=== PATIENT | female | born 1990 ===

== ENCOUNTER 2023-10-17 12:47 | Emergency (ER) | payer OTHER ==
--- NOTE | 2023-10-17 13:02 | ED ---
Upper Extremity HPI - General Chief Complaint: Extremity Injury, Upper Stated Complaint: right hand injury Time Seen by Provider: 10/17/23 13:00 Source: patient, RN notes reviewed Mode of arrival: ambulatory Limitations: no limitations - History of Present Illness Initial Comments: 32-year-old female presents to with chief complaint of right hand pain. States that she was at home putting away dishes when a metal cabinet door fell off the hedges and hit her in the right hand. Patient denies any numbness or tingling to the extremity, as well as limited range of motion yet it is painful. Patient states she has not taken anything for the pain. No other acute complaints at this time. - Related Data Allergies Allergy/AdvReac Type Severity Reaction Status Date / Time aspirin Allergy Rash/Hives Verified 10/17/23 12:55 ibuprofen [From Motrin] Allergy Rash/Hives Verified 10/17/23 12:55 amoxicillin AdvReac Unknown Verified 10/17/23 12:55 Review of Systems ROS Statement: Those systems with pertinent positive or pertinent negative responses have been documented in the HPI. ROS Other: All systems not noted in ROS Statement are negative. Past Medical History Past Medical History: Asthma History of Any Multi-Drug Resistant Organisms: None Reported Past Surgical History: Section Past Psychological History: No Psychological Hx Reported Smoking Status: Current some day smoker Past Alcohol Use History: None Reported Past Drug Use History: Cocaine General Exam Limitations: no limitations General appearance: alert, in no apparent distress Head exam: Present: atraumatic, normocephalic, normal inspection Eye exam: Present: normal appearance, PERRL, EOMI. Absent: scleral icterus, conjunctival injection, periorbital swelling ENT exam: Present: normal exam, mucous membranes moist Neck exam: Present: normal inspection. Absent: tenderness, meningismus, lymp hadenopathy Respiratory exam: Present: normal lung sounds bilaterally. Absent: respiratory distress, wheezes, rales, rhonchi, stridor Cardiovascular Exam: Present: regular rate, normal rhythm, normal heart sounds. Absent: systolic murmur, diastolic murmur, rubs, gallop, clicks GI/Abdominal exam: Present: soft, normal bowel sounds. Absent: distended, tenderness, guarding, rebound, rigid Extremities exam: Present: normal inspection, full ROM, normal capillary refill. Absent: tenderness, pedal edema, joint swelling, calf tenderness Right Hand Wrist exam: Present: tenderness (medial wrist tenderness to palpation ). Absent: full ROM (limited active flexion, extension, rotation), swelling, laceration, ecchymosis Vascular: Present: radial pulse (2+). Absent: vascular compromise Back exam: Present: normal inspection Neurological exam: Present: alert, oriented X3, CN II-XII intact Psychiatric exam: Present: normal affect, normal mood Skin exam: Present: warm, dry, intact, normal color. Absent: rash Course Vital Signs 10/17/23 10/17/23 12:49 13:47 Temperature 98 F 98.1 F Pulse Rate 95 72 Respiratory 18 18 Rate Blood Pressure 123/76 132/78 O2 Sat by Pulse 98 98 Oximetry Medical Decision Making - Medical Decision Making Was pt. sent in by a medical professional or institution (, PA, MARKETING SUMMER INTERN, urgent care, hospital, or halfway...) When possible be specific @ -No Did you speak to anyone other than the patient for history (EMS, parent, family, police, friend...)? What history was obtained from this source @ -No Did you review nursing and triage notes (agree or disagree)? Why? @ -I reviewed and agree with nursing and triage notes Were old charts reviewed (outside hosp., previous admission, EMS record, old EKG, old radiological studies, urgent care reports/EKG's, halfway records)? Report findings @ -No old charts were reviewed Differential Diagnosis (chest pain, altered mental status, abdominal pain women, abdominal pain men, vaginal bleeding, weakness, fever, dyspnea, syncope, headache, dizziness, GI bleed, back pain, seizure, CVA, palpatations, mental health, musculoskeletal)? @Differential Musculoskeletal Muscular strain, contusion, ligament sprain, fracture, arthritis, septic arth ritis, bursitis, cellulitis, muscle spasm, nerve compression, DVT, arterial occlusion, herpes zoster, electrolyte abnormality, tumor.... This is not meant to be in all inclusive list EKG interpreted by me (3pts min.). @ -None X-rays interpreted by me (1pt min.). @ -None done CT interpreted by me (1pt min.). @ -None done U/S interpreted by me (1pt. min.). @ -None done What testing was considered but not performed or refused? (CT, X-rays, U/S, labs)? Why? @ -None What meds were considered but not given or refused? Why? @ -None Did you discuss the management of the patient with other professionals (professionals i.e. , PA, MARKETING SUMMER INTERN, lab, RT, psych nurse, social work nurse, steel fabricator, teacher, school services officer, family service caseworker)? Give summary @ -No Was smoking cessation discussed for >3mins.? @ -No Was critical care preformed (if so, how long)? @ -No Were there social determinants of health that impacted care today? How? (Homelessness, low income, unemployed, alcoholism, drug addiction, transportation, low edu. Level, literacy, decrease access to med. care, fpc, rehab)? @ -No Was there de-escalation of care discussed even if they declined (Discuss DNR or withdrawal of care, Hospice)? DNR status @ -No What co-morbidities impacted this encounter? (DM, HTN, Smoking, COPD, CAD, Cancer, CVA, ARF, Chemo, Hep., AIDS, mental health diagnosis, sleep apnea, morbid obesity)? @ -None Was patient admitted / discharged? Hospital course, mention meds given and route, prescriptions, significant lab abnormalities, going to OR and other pertinent info. @ -Discharged. 32-year-old female chief complaint of right hand and wrist pain. On physical exam patient was still found to have 2+ children's nursery assistant strength and 2+ radial pulse intact. No discrepancies in neurological deficits. X-ray with no acute fracture or dislocation.There is no acute fracture or dislocation noted of the patient's right hand. Symptomatic treatment at home, use ice and cycle Tylenol Motrin at home for symptomatic relief. Discussed with Dr. Guan Undiagnosed new problem with uncertain prognosis? @ -No Drug Therapy requiring intensive monitoring for toxicity (Heparin, Nitro, Insulin, Cardizem)? @ -No Were any procedures done? @ -No Diagnosis/symptom? @ -hand contusion, hand sprain Acute, or Chronic, or Acute on Chronic? @ -acute Uncomplicated (without systemic symptoms) or Complicated (systemic symptoms)? @ -uncomplicated Side effects of treatment? @ -No Exacerbation, Progression, or Severe Exacerbation? @ -No Poses a threat to life or bodily function? How? (Chest pain, USA, MS, pneumonia, PE, COPD, DKA, ARF, appy, cholecystitis, CVA, Diverticulitis, Homicidal, Suicidal, threat to staff... and all critical care pts) @ -No Disposition Clinical Impression: Contusion of hand Narrative: Please return to the Emergency Department if symptoms worsen or any other concerns. Disposition: HOME SELF-CARE Condition: Good Instructions (If sedation given, give patient instructions): Hand Sprain (ED) Is patient prescribed a controlled substance at d/c from ED?: No Referrals: Nonstaff,Physician [Primary Care Provider] - 1-2 days Time of Disposition: 13:35
[2023-10-17] MEDS: ACETAMINOPHEN TAB 500 MG TAB PO STA (13:16)
[2023-10-17 13:24] VITALS: RESP 18
--- NOTE | 2023-10-17 13:24 | XR ---
EXAMINATION TYPE: XR hand complete RT DATE OF EXAM: 10/17/2023 CLINICAL HISTORY: pain TECHNIQUE: Frontal, lateral and oblique images of the right hand are obtained. COMPARISON: None. FINDINGS: There is no acute fracture/dislocation evident. The joint spaces appear within normal limi ts. The overlying soft tissue appears unremarkable. IMPRESSION: There is no acute fracture or dislocation ICD 10 NO FRACTURE, INITIAL EVALUATION
[2023-10-17 14:01] VITALS: BP 132/78; PULSE 72; TEMP 98.1
== END 2023-10-17 13:47 | disposition home or self-care (01) ==
LOC: EC 12:47
DX: S60.221A Contusion of right hand, initial encounter (principal); F17.200 Nicotine dependence, unspecified, uncomplicated; Z88.0 Allergy status to penicillin; Z88.6 Allergy status to analgesic agent; Z88.8 Allergy status to other drugs, medicaments and biological substances; W22.03XA Walked into furniture, initial encounter
CPT/HCPCS: 99283

== ENCOUNTER 2023-10-22 10:49 | Emergency (ER) | payer OTHER ==
[2023-10-22 11:34] VITALS: RESP 18; TEMP 97.7
--- NOTE | 2023-10-22 11:43 | ED ---
Abdominal Pain HPI - General Chief Complaint: Abdominal Pain Stated Complaint: Abd pain Time Seen by Provider: 10/22/23 11:21 Source: patient, RN notes reviewed Mode of arrival: ambulatory Limitations: no limitations - History of Present Illness Initial Comments: This is a 33-year-old female who presents to the emergency department for abdominal pain. Patient is currently at [facility] for cocaine use. Reports left lower quadrant pain with radiation into the back for the last 2 days. She has associated nausea. Denies any history of kidney stones or similar symptoms in the past. MD Complaint: abdominal pain, flank pain - Related Data Home Medications Medication Instructions Recorded Confirmed Acetaminophen Tab [Tylenol] 650 mg PO Q4H PRN 10/22/23 10/22/23 Albuterol Nebulized [Ventolin 2.5 mg INHALATION RT-Q4H PRN 10/22/23 10/22/23 Nebulized] Benzocaine 20 % Gel [Orajel] 1 applic MM DIRECTED PRN 10/22/23 10/22/23 Cariprazine HCl [Vraylar] 1.5 mg PO DAILY 10/22/23 10/22/23 Cholecalciferol [Vitamin D3 (25 25 mcg PO DAILY 10/22/23 10/22/23 Mcg = 1000 Iu)] Docusate [Colace] 100 mg PO BID PRN 10/22/23 10/22/23 Melatonin 10 mg PO HS 10/22/23 10/22/23 Multivitamins, Thera [Multivitamin 1 tab PO DAILY 10/22/23 10/22/23 (formulary)] Mylanta 30 ml PO Q4H PRN 10/22/23 10/22/23 Nicotine 21Mg/24Hr Patch [Habitrol] 1 patch TRANSDERM DAILY 10/22/23 10/22/23 clindamycin HCL [Cleocin] 450 mg PO Q8H 10/22/23 10/22/23 traZODone HCL [Desyrel] 50 - 150 mg PO HS PRN 10/22/23 10/22/23 Allergies Allergy/AdvReac Type Severity Reaction Status Date / Time amoxicillin Allergy Rash/Hives/ Verified 10/22/23 14:45 Wheezing/Fe dino aspirin Allergy Rash/Hives/ Verified 10/22/23 14:45 Wheezing/Fe dino ibuprofen [From Motrin] Allergy Rash/Hives/ Verified 10/22/23 14:45 Wheezing/Fe dino Review of Systems ROS Statement: Those systems with pertinent positive or pertinent negative responses have been documented in the HPI. ROS Other: All systems not noted in ROS Statement are negative. Past Medical History Past Medical History: Asthma History of Any Multi-Drug Resistant Organisms: None Reported Past Surgical History: Section Past Psychological History: No Psychological Hx Reported Smoking Status: Current some day smoker Past Alcohol Use History: None Reported Past Drug Use History: Cocaine General Exam Limitations: no limitations General appearance: alert, in distress Head exam: Present: atraumatic, normocephalic, normal inspection Respiratory exam: Present: normal lung sounds bilaterally. Absent: respiratory distress, wheezes, rales, rhonchi, stridor Cardiovascular Exam: Present: regular rate, normal rhythm, normal heart sounds. Absent: systolic murmur, diastolic murmur, rubs, gallop, clicks GI/Abdominal exam: Present: soft, tenderness (LLQ), normal bowel sounds. Absent: distended Back exam: Present: CVA tenderness (L). Absent: CVA tenderness (R) Neurological exam: Present: alert, oriented X3, CN II-XII intact Psychiatric exam: Present: normal affect, normal mood Skin exam: Present: warm, dry, intact, normal color. Absent: rash Course Vital Signs 10/22/23 10/22/23 10/22/23 11:16 13:29 15:08 Temperature 97.7 F Pulse Rate 107 H 84 Respiratory 18 18 18 Rate Blood Pressure 138/94 111/80 O2 Sat by Pulse 99 96 Oximetry Medical Decision Making - Medical Decision Making This is a 33 year old female who presents to the emergency department for abdominal pain. Was pt. sent in by a medical professional or institution? @ -[facility] Did you speak to anyone other than the patient for history? @ -No Did you review nursing and triage notes? @ -Yes, and I agree, it is accurate with regards to the patient's symptoms. Were old charts reviewed? @ -No Differential Diagnosis? @ -Differential Abdominal Pain Women: Appendicitis, Cholecystitis, diverticulosis, ischemic bowel, pancreatitis, hepatitis, UTI, gastroenteritis, AAA, incarcerated hernia, bowel obstruction, constipation, inflammatory bowel, hepatitis, peptic ulcer disease, splenic infarction, perforated viscus, vulvitis, ovarian torsion, PID, kidney stone, placenta abruption, this is not meant to be an all-inclusive list EKG interpreted by me (3pts min.)? @ -Not obtained X-rays interpreted by me (1pt min.)? @ -Not obtained CT interpreted by me (1pt min.)? @ -CT scan of the abdomen and pelvis obtained. My interpretation identifies no evidence of bowel wall thickening or free air. U/S interpreted by me (1pt. min.)? @ -Transvaginal ultrasound obtained. My interpretation identifies no evidence of an ovarian torsion. What testing was considered but not performed? (CT, X-rays, U/S, labs)? Why? @ -None What meds were considered but not given? Why? @ -None Did you discuss the management of the patient with other professionals? @ -No Did you reconcile home meds? @ -No Was smoking cessation discussed for >3mins.? @ -No Was critical care preformed (if so, how long)? @ -No Were there social determinants of health that impacted care today? How? (Homelessness, low income, unemployed, alcoholism, drug addiction, transpo rtation, low edu. Level, literacy, decrease access to med. care, long term, rehab)? @ -Drug addiction, increasing her risk for other health problems. Was there de-escalation of care discussed even if they declined? (Discuss DNR or withdrawal of care, Hospice)? @ -No What co-morbidities impacted this encounter? (DM, HTN, Smoking, COPD, CAD, Cancer, CVA, Hep., AIDS, mental health diagnosis, sleep apnea, morbid obesity)? @ -Drug addiction Was patient admitted / discharged? @ -Discharged. Lab work unremarkable. Urinalysis negative for signs of infection. CT scan of the abdomen and pelvis obtained demonstrating no evidence of a ureteral calculus or other acute process to account for the patient's pain. Transvaginal ultrasound obtained as well revealing no acute process. She was noted to have leiomyomatous changes of the uterus and bilateral ovarian follicles. There was no evidence of ovarian torsion. Discussed with the patient that the cause of her symptoms is not entirely clear. Her pain was wel l-controlled in the emergency department and she was ambulating around and eating food without any difficulty. Patient discharged back to [facility] in stable condition. Advised Tylenol as needed for pain relief. Undiagnosed new problem with uncertain prognosis? @ -None Drug Therapy requiring intensive monitoring for toxicity (Heparin, Nitro, Insulin, Cardizem)? @ -None Were any procedures done? @ -None Diagnosis/symptom? @ -Abdominal pain Acute, or Chronic, or Acute on Chronic? @ -Acute Uncomplicated (without systemic symptoms) or Complicated (systemic symptoms)? @ -Uncomplicated Side effects of treatment? @ -None Exacerbation, Progression, or Severe Exacerbation] @ -Not applicable Poses a threat to life or bodily function? @ -No Return precautions reviewed in depth, the patient is instructed to return to the emergency department with any new, worsening, or concerning symptoms. Patient verbalized understanding. This case was discussed in detail with the attending ED physician, Dr. Velez Presentation, findings, and treatment plan discussed in detail as well. - Lab Data Result diagrams: 10/22/23 11:49 10/22/23 11:49 Lab Results 10/22/23 10/22/23 10/22/23 Range/Units 11:49 11:49 11:49 WBC 6.2 (3.8-10.6) k/uL RBC 4.46 (3.80-5.40) m/uL Hgb 12.3 (11.4-16.0) gm/dL Hct 39.2 (34.0-46.0) % MCV 88.0 (80.0-100.0) fL MCH 27.6 (25.0-35.0) pg MCHC 31.3 (31.0-37.0) g/dL RDW 13.9 (11.5-15.5) % Plt Count 353 (150-450) k/uL MPV 7.5 Neutrophils % 55 % Lymphocytes % 32 % Monocytes % 7 % Eosinophils % 3 % Basophils % 0 % Neutrophils # 3.4 (1.3-7.7) k/uL Lymphocytes # 1.9 (1.0-4.8) k/uL Monocytes # 0.4 (0-1.0) k/uL Eosinophils # 0.2 (0-0.7) k/uL Basophils # 0.0 (0-0.2) k/uL Sodium (137-145) mmol/L Potassium (3.5-5.1) mmol/L Chloride (98-107) mmol/L Carbon Dioxide (22-30) mmol/L Anion Gap mmol/L BUN (7-17) mg/dL Creatinine (0.52-1.04) mg/dL Est GFR (CKD-EPI)AfAm (>60 ml/min/1.73 sqM) Est GFR (CKD-EPI)NonAf (>60 ml/min/1.73 sqM) Glucose (74-99) mg/dL Plasma Lactic Acid Reagan (0.7-2.0) mmol/L Calcium (8.4-10.2) mg/dL Total Bilirubin (0.2-1.3) mg/dL AST (14-36) U/L ALT (4-34) U/L Alkaline Phosphatase (38-126) U/L Total Protein (6.3-8.2) g/dL Albumin (3.5-5.0) g/dL Amylase (30-110) U/L Lipase (23-300) U/L Urine Color Colorless Urine Appearance Clear (Clear) Urine pH 7.0 (5.0-8.0) Ur Specific [place] 1.009 (1.001-1.035) Urine Protein Negative (Negative) Urine Glucose (UA) Negative (Negative) Urine Ketones Negative (Negative) Urine Blood Negative (Negative) Urine Nitrite Negative (Negative) Urine Bilirubin Negative (Negative) Urine Urobilinogen <2.0 (<2.0) mg/dL Ur Leukocyte Esterase Negative (Negative) Urine HCG, Qual Not Detected (Not Detectd) 10/22/23 10/22/23 Range/Units 11:49 11:49 WBC (3.8-10.6) k/uL RBC (3.80-5.40) m/uL Hgb (11.4-16.0) gm/dL Hct (34.0-46.0) % MCV (80.0-100.0) fL MCH (25.0-35.0) pg MCHC (31.0-37.0) g/dL RDW (11.5-15.5) % Plt Count (150-450) k/uL MPV Neutrophils % % Lymphocytes % % Monocytes % % Eosinophils % % Basophils % % Neutrophils # (1.3-7.7) k/uL Lymphocytes # (1.0-4.8) k/uL Monocytes # (0-1.0) k/uL Eosinophils # (0-0.7) k/uL Basophils # (0-0.2) k/uL Sodium 136 L (137-145) mmol/L Potassium 4.4 (3.5-5.1) mmol/L Chloride 106 (98-107) mmol/L Carbon Dioxide 24 (22-30) mmol/L Anion Gap 6 mmol/L BUN 19 H (7-17) mg/dL Creatinine 0.54 (0.52-1.04) mg/dL Est GFR (CKD-EPI)AfAm >90 (>60 ml/min/1.73 sqM) Est GFR (CKD-EPI)NonAf >90 (>60 ml/min/1.73 sqM) Glucose 90 (74-99) mg/dL Plasma Lactic Acid Reagan 0.7 (0.7-2.0) mmol/L Calcium 9.2 (8.4-10.2) mg/dL Total Bilirubin 0.3 (0.2-1.3) mg/dL AST 24 (14-36) U/L ALT 22 (4-34) U/L Alkaline Phosphatase 70 (38-126) U/L Total Protein 7.0 (6.3-8.2) g/dL Albumin 4.0 (3.5-5.0) g/dL Amylase 68 (30-110) U/L Lipase 61 (23-300) U/L Urine Color Urine Appearance (Clear) Urine pH (5.0-8.0) Ur Specific [place] (1.001-1.035) Urine Protein (Negative) Urine Glucose (UA) (Negative) Urine Ketones (Negative) Urine Blood (Negative) Urine Nitrite (Negative) Urine Bilirubin (Negative) Urine Urobilinogen (<2.0) mg/dL Ur Leukocyte Esterase (Negative) Urine HCG, Qual (Not Detectd) - Radiology Data Radiology results: report reviewed, image reviewed Disposition Clinical Impression: Abdominal pain Disposition: HOME SELF-CARE Instructions (If sedation given, give patient instructions): Abdominal Pain (ED) Additional Instructions: Return to the emergency department with any new, worsening, or concerning symptoms. Take Tylenol as needed for pain relief. Follow up with your primary care provider in 1-2 days. Is patient prescribed a controlled substance at d/c from ED?: No Referrals: Nonstaff,Physician [Primary Care Provider] - 1-2 days Time of Disposition: 14:34
[2023-10-22] MEDS: MORPHINE SULFATE 4 MG/ML SYRINGE IVP STA ×2 (11:56→13:22)
[2023-10-22] MEDS: SODIUM CHLORIDE 0.9% 1,000 ML IV STA (11:56)
[2023-10-22] MEDS: ONDANSETRON 4 MG/2 ML VIAL IVP STA (11:56)
[2023-10-22 12:03] LABS: Appearance,Urine Clear (Clear); Bilirubin,Urine Negative (Negative); Blood,Urine Negative (Negative); Color,Urine Colorless; Glucose,Urine (UA) Negative (Negative); Ketones,Urine Negative (Negative); Leukocyte Esterase,Urine Negative (Negative); Nitrite,Urine Negative (Negative); Protein,Urine Negative (Negative); Specific Gravity,Urine 1.009 (1.001-1.035); Urobilinogen,Urine <2.0 mg/dL (<2.0)
[2023-10-22 12:11] LABS: ALT 22 U/L (4-34); AST 24 U/L (14-36); African American GFR (CKD) >90 (>60 ml/min/1.73 sqM); Alkaline Phosphatase 70 U/L (38-126); Amylase 68 U/L (30-110); Anion Gap 6 mmol/L; Blood Urea Nitrogen 19 mg/dL (7-17); Calcium 9.2 mg/dL (8.4-10.2); Carbon Dioxide 24 mmol/L (22-30); Chloride 106 mmol/L (98-107); Glucose 90 mg/dL (74-99); Lipase 61 U/L (23-300); Non-African American GFR(CKD) >90 (>60 ml/min/1.73 sqM); Potassium 4.4 mmol/L (3.5-5.1); Sodium 136 mmol/L (137-145); Total Bilirubin 0.3 mg/dL (0.2-1.3)
[2023-10-22 12:29] LABS: Basophils % (A) 0 %; Eosinophils # (A) 0.2 k/uL (0-0.7); Eosinophils % (A) 3 %; HCT 39.2 % (34.0-46.0); HGB 12.3 gm/dL (11.4-16.0); Lymphocytes # (A) 1.9 k/uL (1.0-4.8); Lymphocytes % (A) 32 %; MCH 27.6 pg (25.0-35.0); MCHC 31.3 g/dL (31.0-37.0); Mean Platelet Volume 7.5; Monocytes # (A) 0.4 k/uL (0-1.0); Monocytes % (A) 7 %; Neutrophils # (A) 3.4 k/uL (1.3-7.7); Neutrophils % (A) 55 %; Platelet Count 353 k/uL (150-450); RBC 4.46 m/uL (3.80-5.40); RDW 13.9 % (11.5-15.5); WBC 6.2 k/uL (3.8-10.6)
--- NOTE | 2023-10-22 13:17 | CT ---
EXAMINATION TYPE: CT abdomen pelvis w con DATE OF EXAM: 10/22/2023 COMPARISON: None INDICATION: LEFT SIDED ABD PAIN DLP: 1165.8 mGycm, Automated exposure control for dose reduction was used. CONTRAST: 100 mL of Isovue 300. Study performed without Oral Contrast TECHNIQUE: Axial images were obtained from above the diaphragm to the pubic rami in the axial plane a t 5 mm thick sections. Reconstructed images are reviewed on the computer in the coronal plane. FINDINGS: Limited CT sections are obtained the lung bases. The lung bases are clear. CT ABDOMEN: Liver: Normal Spleen: Normal Pancreas: Normal Adrenal glands: The adrenal glands are normal. Gallbladder: Normal Kidneys: No masses are evident. No hydronephrosis is present. No cysts are present. Delayed images were obtained through the kidneys, which remain unremarkable. No renal stones are identified. Aorta: Normal Inferior vena cava: Normal. CT PELVIS: Loops of bowel within the abdomen and pelvis are normal. A few diverticuli are present without eviden ce of acute diverticulitis. The study is without oral contrast limiting bowel evaluation. Appendix: Normal as visualized. Urinary bladder: Normal. Genitourinary structures: Uterus appears normal. Adnexa appear within normal limits. No free fluid is evident. Osseous structures: No suspicious lytic or sclerotic lesions. IMPRESSION: 1. No suspicious acute abnormality to account for left-sided abdomen pain
[2023-10-22] MEDS: DICYCLOMINE 10 MG/ML 2 ML AMP IM STA (13:22)
[2023-10-22 13:40] VITALS: BP 111/80; PULSE 84
--- NOTE | 2023-10-22 14:13 | US ---
EXAMINATION TYPE: US transvaginal DATE OF EXAM: 10/22/2023 COMPARISON: NONE CLINICAL INDICATION: Female, 33 years old with history of Left sided pelvic pain; Left pelvic crampin g, 4 c-sections, tubal ligation TECHNIQUE: Transvaginal (TV). Date of LMP: 10/07/23 EXAM MEASUREMENTS: Uterus: 9.6 x 5.6 x 5.7 cm Endometrial Stripe: 0.7 cm Right Ovary: 2.7 x 1.7 x 1.5 cm Left Ovary: 3.4 x 3.4 x 2.3 cm *Technical limitations, patient unable to hold still 1. Uterus: Anteverted heterogeneous. possible fibroid anteriorly = 2.6 x 2.1 x 2.4cm 2. Endometrium: limited evaluation, appears wnl 3. Right Ovary: follicles noted 4. Left Ovary: follicles noted Spectral, color and waveform doppler imaging shows good arterial and venous flow within the ovaries ; there is no evidence for ovarian torsion. 5. Bilateral Adnexa: appears wnl 6. Posterior cul-de-sac: wnl IMPRESSION: 1. Leiomyomatous changes of the uterus. 2. Bilateral ovarian follicles.
== END 2023-10-22 15:30 | disposition home or self-care (01) ==
LOC: EC 10:49
DX: R10.32 Left lower quadrant pain (principal); F14.20 Cocaine dependence, uncomplicated; F17.200 Nicotine dependence, unspecified, uncomplicated; Z88.0 Allergy status to penicillin; Z88.6 Allergy status to analgesic agent
CPT/HCPCS: 99284; 96372; 96374; 96375; 96376; 96361 ×3; 36415; 80053; 82150; 83605; 83690; 85025; 81003; 81025; 93975; 76830; 74177; J2270; J0500; J2405; Q9967